=== PATIENT | male | born 1995 | race African-American/Black ===

== ENCOUNTER 2020-06-23 16:20 | Emergency (ER) | payer OTHER ==
[2020-06-23 16:26] VITALS: BP 121/87; PULSE 82; TEMP 98.2; BMI 22.6
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
[2020-06-23] MEDS ORDERED: DIPHTH,PERTUSS(ACELL),TET 0.5 ML DISP.SYRIN IM ONE ×2 (16:28→17:34)
[2020-06-23] MEDS ORDERED: BACITRACIN 0.9 GM PACKET TP ONE (17:06)
[2020-06-23] MEDS ORDERED: BACITRACIN 15 GM TUBE TOPICAL OINTMENT ONE (17:10)
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
== END 2020-06-23 18:23 | disposition home or self-care (01) ==
LOC: JERFT 16:20
PROC: 3E0234Z Introduction of Serum, Toxoid and Vaccine into Muscle, Percutaneous Approach (ICD-10-PCS; principal; 2020-06-23)
DX: S50.812A Abrasion of left forearm, initial encounter (principal); S83.92XA Sprain of unspecified site of left knee, initial encounter; S63.502A Unspecified sprain of left wrist, initial encounter
CPT/HCPCS: 73110-TC-LT-FY; 73130-TC-LT-FY; 73562-TC-LT-FY; 90715; 99284-25